=== PATIENT | female | born 1960 | race Two or more races ===

== ENCOUNTER 2018-07-15 21:03 | Inpatient (IN) | payer OTHER ==
[~2018-07-15] VITALS: Ht 152.4 cm; Wt 59.2 kg
[2018-07-15 22:20] VITALS: BP 141/71
--- NOTE | 2018-07-15 22:20 | NUR ---
RN NOTES RECEIVED PATIENT FROM [facility] ON [facility] WITH SON AT THE BEDSIDE, A/A/O X4. PATIENT COMPLAINS OF NON RADIATING CHEST PAIN 4/10. NO COMPLAINS OF N/V, NO SOB AT THIS TIME. COMPLAINS OF WEAKNESS ON HER BOTH LEGS AND WAS SUGGESTED TO CALL FOR HELP. 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 SKIN ASSESSMENT HAS BEEN DONE AND NO SKIN ISSUES IDENTIFIED AT THIS TIME.NO EDEMA, PT IS AMBULATORY.LEFT AC G20 IV LINE IS PATIENT AND INTACT. CALLED MD BAE TO NOTIFY ABOUT PT BEING IN THE UNIT AND WAITING FOR THE ORDERS. ALL SAFETY MEASURES ARE IMPLEMENTED, BED IN LOW, LOCKED POSITION, CALL LIGHT IN REACH. WILL CONTINUE TO MONITOR PATIENT CLOSELY.
[2018-07-15 22:46] VITALS: BP 141/71
[2018-07-16] VITALS: BP 122/66
[2018-07-16] MEDS ORDERED: ZOLPIDEM TARTRATE 5 MG TABLET PO PRN
[2018-07-16] MEDS ORDERED: ONDANSETRON HCL/PF 4 MG/2 ML VIAL IVP PRN
[2018-07-16] MEDS ORDERED: DEXTROSE 50%-WATER 50 ML DISP.SYRIN IV PRN
[2018-07-16] MEDS ORDERED: ACETAMINOPHEN 325 MG TABLET PO PRN
--- NOTE | 2018-07-16 00:32 | NUR ---
ASPIRIN 81MG PO HAS NOT BEEN ADMINISTERED BECAUSE PT GOT AT THE [facility] 162MG. Addendum: 07/16/18 at 0044 by ILANA WEEKS RN PATIENT GOT ASPIRIN 162 MG AT [facility].
[2018-07-16] MEDS: BLOOD SUGAR DIAGNOSTIC 1 EACH STRIP IN SCH ×5 (00:55→21:27)
[2018-07-16] MEDS: ATORVASTATIN 10 MG TABLET PO SCH ×2 (00:55→21:28)
[2018-07-16] MEDS: IV NS 0.9% 1,000 ML IV PRN ×2 (00:58→21:44)
--- NOTE | 2018-07-16 01:00 | NUR ---
RN NOTES PATIENT ACCU CHEK RESULT IS 428, 10 UNITS OF HUMULIN R INSULIN HAS BEEN ADMIN. CALLED MD KATHIA MCDONNELL AND NEW ORDER TO ADMIN. 10 MORE UNITS OF HUMULIN R INSULIN IS IN PLACE. WILL RECHECK BS AND CONT TO MONITOR PATIENT.
[2018-07-16] MEDS: INSULIN REGULAR, HUMAN 100 UNIT/ML 3 ML VIAL SQ PRN ×5 (01:14→21:37)
[2018-07-16 04:00] VITALS: BP 145/80
[2018-07-16 06:25] LABS: BASOPHILS % (AUTO) 0.5 % (0.0-2.0); EOSINOPHILS % (AUTO) 0.5 % (0.0-6.0); HEMATOCRIT 39 % (33-45); HEMOGLOBIN 13.5 g/dL (11.5-14.8); LYMPHOCYTES # (AUTO) 2.1 /CMM (0.8-4.8); LYMPHOCYTES % (AUTO) 30.9 % (20.0-44.0); MEAN CORPUSCULAR HGB CONC 34 g/dl (31.0-36.0); MEAN CORPUSCULAR VOLUME 83 fL (82-100); MONOCYTES # (AUTO) 0.5 /CMM (0.1-1.30); MONOCYTES % (AUTO) 7.3 % (2.0-12.0); NEUTROPHILS # (AUTO) 4.1 /CMM (1.8-8.9); NEUTROPHILS % (AUTO) 60.8 % (43.0-81.0); PLATELET COUNT (AUTO) 284 /CMM (150-450); RED BLOOD CELL COUNT(AUTO) 4.72 MIL/uL (4.0-5.2); WHITE BLOOD COUNT (AUTO) 6.7 K/uL (4.3-11.0)
[2018-07-16 06:49] LABS: BILIRUBIN,TOTAL 0.3 mg/dL (0.2-1.0); CALCIUM, SERUM 8.9 mg/dL (8.5-10.1); CREATININE 0.8 mg/dL (0.6-1.3); MAGNESIUM 1.4 mg/dL (1.8-2.4); PHOSPHORUS 2.8 mg/dL (2.5-4.9); POTASSIUM 3.1 mmol/L (3.5-5.1)
[2018-07-16 06:56] LABS: THYROID STIMULATING HORMONE 0.97 uIU/mL (0.358-3.74)
--- NOTE | 2018-07-16 07:50 | NUR ---
ACCOUNT SUPPORT REP OPENING NOTES RECEIVED PATIENT IN STABLE CONDITION. IN NO APPARENT DISTRESS. BEDSIDE RAILS ARE UPX2. BED IS LOCKED AND LOWERED. CALL LIGHT IS WITHIN REACH. IV LINE IS INTACT AND PATENT. WILL CONTINUE TO MONITOR.
[2018-07-16 08:00] VITALS: BP 106/62
[2018-07-16] MEDS: LOSARTAN POTASSIUM 50 MG TABLET PO SCH (08:47)
[2018-07-16] MEDS: Magnesium 1GM/D5W 100ML PREMIX 100 ML IV SCH ×2 (08:47→10:13)
[2018-07-16] MEDS: POTASSIUM CHLORIDE 20 MEQ TAB.PRT.SR PO SCH ×3 (08:48→10:00)
[2018-07-16] MEDS: ASPIRIN EC 81 MG TABLET.DR PO SCH ×2 (08:48)
[2018-07-16] MEDS: NAPROXEN 250 MG TABLET PO SCH ×2 (08:49→16:37)
[2018-07-16] MEDS: ENOXAPARIN SODIUM 40 MG/0.4 ML DISP.SYRIN SQ SCH (08:51)
[2018-07-16] MEDS ORDERED: REGADENOSON 0.4 MG/5 ML DISP.SYRIN IVP ONE (09:00)
[2018-07-16] MEDS ORDERED: METF-440 PO (10:19)
[2018-07-16] MEDS ORDERED: SITA50TA PO (10:19)
[2018-07-16] MEDS ORDERED: ASPI-1169 PO (10:19)
--- NOTE | 2018-07-16 10:20 | NUR ---
NON ADMINISTERED KDUR 40MEQ DUE TO PATIENT NOT BEING ABLE TO SWALLOW PILLS. CHANGED TO POTASSIUM 40MEQ POWDER FORM. WILL ADMINISTER POWDER FORM AFTER PATIENT RETURNS FROM [facility].
[2018-07-16] MEDS ORDERED: POTASSIUM CHLORIDE 20 MEQ POWDER PACKET PO ONE (10:30)
[2018-07-16 16:00] VITALS: BP 96/51
--- NOTE | 2018-07-16 18:15 | NUR ---
MS RN CLOSING NOTES PATIENT IS IN STABLE CONDITION. IN NO APPARENT DISTRESS. BEDSIDE RAILS ARE UPX2. BED IS LOCKED AND LOWERED. CALL LIGHT IS WITHIN REACH. IV LINE IS INTACT AND PATENT.ALL NEEDS WERE MET. 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
--- NOTE | 2018-07-16 19:30 | NUR ---
RN NOTES RECEIVED PT. AWAKE ON BED, A/OX4, MAC[place]ON[place] SPEAKING, IV FLUID RUNNING, DENIES PAIN, NO SOB, CALL LIGHT WITHIN REACH, [id number], CONTINUE TO MONITOR
[2018-07-16 20:00] VITALS: BP 101/57
--- NOTE | 2018-07-17 06:25 | NUR ---
RN NOTES AWAKE, MORNING CARE RENDERED, DENIES PAIN, NO SOB, CALL LIGHT WITHIN REACH, [id number], PT. NEEDS ATTENDED
[2018-07-17 06:28] LABS: CALCIUM, SERUM 8.6 mg/dL (8.5-10.1); CREATININE 0.7 mg/dL (0.6-1.3); POTASSIUM 4.3 mmol/L (3.5-5.1)
[2018-07-17 06:30] LABS: BASOPHILS % (AUTO) 0.4 % (0.0-2.0); EOSINOPHILS % (AUTO) 1.9 % (0.0-6.0); HEMATOCRIT 37 % (33-45); HEMOGLOBIN 12.8 g/dL (11.5-14.8); LYMPHOCYTES # (AUTO) 2.2 /CMM (0.8-4.8); LYMPHOCYTES % (AUTO) 45.3 % (20.0-44.0); MEAN CORPUSCULAR HGB CONC 34 g/dl (31.0-36.0); MEAN CORPUSCULAR VOLUME 84 fL (82-100); MONOCYTES # (AUTO) 0.4 /CMM (0.1-1.30); MONOCYTES % (AUTO) 9.2 % (2.0-12.0); NEUTROPHILS # (AUTO) 2.1 /CMM (1.8-8.9); NEUTROPHILS % (AUTO) 43.2 % (43.0-81.0); PLATELET COUNT (AUTO) 266 /CMM (150-450); RED BLOOD CELL COUNT(AUTO) 4.44 MIL/uL (4.0-5.2); WHITE BLOOD COUNT (AUTO) 4.9 K/uL (4.3-11.0)
[2018-07-17] MEDS: BLOOD SUGAR DIAGNOSTIC 1 EACH STRIP IN SCH ×2 (06:50→11:50)
[2018-07-17] MEDS: INSULIN REGULAR, HUMAN 100 UNIT/ML 3 ML VIAL SQ PRN ×2 (06:51→11:56)
[2018-07-17] MEDS ORDERED: NAPR250T4 PO (08:15)
[2018-07-17] MEDS ORDERED: ASPI-1152 PO (08:15)
[2018-07-17] MEDS ORDERED: OMEP40CA37 PO (08:21)
[2018-07-17] MEDS: NAPROXEN 250 MG TABLET PO SCH (08:33)
[2018-07-17] MEDS: ASPIRIN EC 81 MG TABLET.DR PO SCH (08:33)
[2018-07-17] MEDS: LOSARTAN POTASSIUM 50 MG TABLET PO SCH (08:35)
[2018-07-17] MEDS: ENOXAPARIN SODIUM 40 MG/0.4 ML DISP.SYRIN SQ SCH (08:37)
[2018-07-17 08:46] VITALS: BP 121/60
--- NOTE | 2018-07-17 14:45 | NUR ---
DISCHARGE NOTES PT. WAS DISCHARGED HOME IN STABLE CONDITION. DISCHARGE INSTRUCTIONS WITH EDUCATION WAS PROVIDED AND PT. VERBALIZED UNDERSTANDING. DISCHARGE PACKET WAS SIGNED AND PRESCRIPTION WAS GIVEN. ID BAND, AND IV WAS REMOVED. ALL QUESTIONS ANSWERED. PT. LEFT BY PRIVATE CAR.
== END 2018-07-17 14:45 | disposition home or self-care (01) | DRG 203 ==
LOC: TELE 22:03 → MED 07-16 11:18
PROVIDERS: ADMIT Nurse Practitioner Acute Care; ATTEND Family Medicine
DX: M94.0 Chondrocostal junction syndrome [Tietze] (principal); E11.65 Type 2 diabetes mellitus with hyperglycemia; E87.6 Hypokalemia; I10 Essential (primary) hypertension; Z79.82 Long term (current) use of aspirin; Z79.84 Long term (current) use of oral hypoglycemic drugs
CPT/HCPCS: 36415; 80048-TC; 80053-TC; 80061-TC; 82962-TC; 83540-TC; 83735-TC; 84100-TC; 84443-TC; 84484-TC; 85025-TC; 87081-TC; 93307-TC; A9502; G0378; J1650; J1815; J2405; J2785; J3475; J7030